=== PATIENT | female | born 1940 | race Caucasian/White ===

== ENCOUNTER 2017-01-15 11:42 | Emergency (ER) | payer OTHER, MEDICARE ==
[2017-01-15 11:58] VITALS: BMI 29.2
[2017-01-15] MEDS ORDERED: SODIUM CHLORIDE 1,000 ML IV STA (12:13)
--- NOTE | 2017-01-15 12:14 | PDOC ---
History of Present Illness - General Chief Complaint: Pain, Acute Stated Complaint: RT SIDE ABD PAIN History Source: Patient Exam Limitations: No Limitations - History of Present Illness Initial Comments: 01/15/17 13:07 HPI: This 76 year old female presents with her c/o generalized right sided abd and back pain that is "internal" and nothing noted specific with it coming and going. She has pain and states it was more intense when it started 2 /5 hours ago. She did not take anything and went to ER for evaluation. She denies fever, had some nausea but no vomiting. Her stated that she became a little sweaty and pale as well but it all subsided. She had a left sided kidney pain/stone one year ago and feels this is the same type plan. Denies dysuria, hematuria, CV tenderness. States she does have some urinary frequency. It does not burn. Chief Compliant: Right-sided abdominal and back pain Pain location: Duration: Started 2-1/2 hours ago Modifying factors: None Quality: Initially was sharp but now has subsided Radiating: It is internal only Severity: Moderate Time: of sided PMH: Breast cancer, kidney stone one year ago FH: Pt has not recently traveled outside the country in the last 30 days. Pt has not been in contact with people who have traveled out of the country, in contact with people who have been ill with fever, n, v, d. SH: smoking use: NONE illicit drug use: NONE alcohol use: NONE employment/educational status: sexual history: PSH: Lumpectomy, chemotherapy and radiation completed in April 2016 Home med use noted on JAN Allergies: NKA Immunizations: PCP: Dr. Flores Past History - Past Medical History Allergies/Adverse Reactions: Allergies Allergy/AdvReac Type Severity Reaction Status Date / Time No Known Allergies Allergy Verified 01/15/17 11:58 Home Medications: Ambulatory Orders NK [No Known Home Medication] 01/15/17 Anemia: Yes Asthma: No Cancer: Yes (SKIN, breast CA) Cardiac Disorders: No CVA: No COPD: No CHF: No Dementia: No Diabetes: No GI Disorders: Yes (gastritis) Disorders: No HTN: No Hypercholesterolemia: No Liver Disease: No Seizures: No Thyroid Disease: No - Surgical History Abdominal Surgery: No Appendectomy: No Cardiac Surgery: No Cholecystectomy: No Lung Surgery: No Neurologic Surgery: No Orthopedic Surgery: No - Immunization History Immunization Up to Date: Yes - Psycho/Social/Smoking Cessation Hx Suicidal Ideation: No Smoking History: Never smoked Have you smoked in the past 12 months: No Information on smoking cessation initiated: No Hx Alcohol Use: No Drug/Substance Use Hx: No Substance Use Type: None Review of Systems - Review of Systems Able to Perform ROS?: Yes Comments:: 01/15/17 13:18 General statement: Hematology: neg history of bleeding/blood thinners Skin: Neg for lesions, rash, bruising. HEENT: Neg symptoms Respiratory: Neg SOB or difficulty in breathing Cardiac: Neg chest pain GI: Neg pain, n/v : Neg problems on voiding MS: Neg for joint pain/stiffness, no edema Neuro: Neg for LOC, weakness, Endocrine: Neg for excess thirst/hunger, cold/heat intolerance, excess sweating Allergies: Neg for allergies 01/15/17 14:30 *Physical Exam - Vital Signs Last Vital Signs Temp Pulse Resp BP Pulse Ox 97.9 F 72 18 125/57 97 01/15/17 11:54 01/15/17 11:54 01/15/17 11:54 01/15/17 11:54 01/15/17 11:54 - Physical Exam Comments: 01/15/17 14:30 General Appearance: This well appearing 76-year-old female V/S: hemodynamically stable, afebrile Skin: WNL of pt's skin color, no signs of pallor, mottling, cyanosis Head:symmetrical Eyes: EOM's intact, PERRLA Ears: denies pain Nose: patent Throat: lips, teeth, gums, tongue, buccal mucos pink and moist Lungs: Chest symmetry equal. Cap refill <3 seconds. Lung sounds clear Cardiac: PMI at R 4MCL space, pos S1 and S2, regular rate. Abdomen: Soft, round, nontender but states there is pain with in herself that cannot really be reproduced : Not observed Muscularskeletal: Gait steady, ambulated in to ER, no edema +PMS Neuro: AAOx3, cognitively intact, speech clear and appropriate. ED Treatment Course - LABORATORY CBC & Chemistry Diagram: 01/15/17 13:27 01/15/17 13:27 Medical Decision Making - Medical Decision Making 01/15/17 14:32 A/P: 76-year-old female presents with right-sided abdominal pain that has now subsided upon arrival into the emergency room. Rule out kidney stone, UTI, abdominal strain, diverticulitis 1. Spiral CT 2. UA and C&S. 3. CBC and comp 4. Patient did not want any pain medication. Unable to access IV but patient is drinking fluids. 01/15/17 14:35 Labs are within normal limits. UA is negative except for some blood. Patient is noted to have a 2 mm right UVJ calculus with minimal hydronephrosis on the right side. Placed a phone call out to Dr. Quevedo. Patient has been under the care of Dr. Chase 1 in the past for her kidney stone. 01/15/17 15:[address] Quevedo re: pt results. Asked to follow up with Dr. Chase and drink plenty of fluids. *DC/Admit/Observation/Transfer Diagnosis at time of Disposition: Renal colic on right side - Discharge Dispostion Disposition: HOME Condition at time of disposition: Good Admit: No - Referrals Referrals: Byron Flores MD [Primary Care Provider] - - Patient Instructions Printed Discharge Instructions: DI for Kidney Stones Additional Instructions: Discharge instructions 1. Please follow up with your primary physician within the next few days and explain that you have been seen here in the Emergency Room and found to have a right side small kidney stone. It is not completely obstructive however it can move. If pain redevelops, you should return to ER. Drink plenty of water!!!. 2. If you experience any worsening of symptoms, increase pain please return to the ER 3. walk around and continue to do daily living activities. 4. Drink plenty of water Follow up with your urologist
[2017-01-15 13:53] LABS: BASOPHIL 0.9 % (0-2.0); EOSINOPHIL 1.1 % (0-4.5); MCH 30.7 pg (25.7-33.7); MCHC 33.1 g/dl (32.0-36.0); MEAN PLT VOLUME 7.4 fl (7.5-11.1); NEUTROPHILS 81.5 % (42.8-82.8); PLATELET COUNT 200 K/MM3 (134-434); RDW 13.3 % (11.6-15.6)
[2017-01-15 14:02] LABS: ALK PHOS 121 U/L (45-117); ANION GAP 11 (8-16); BILIRUBIN,TOTAL 0.4 mg/dL (0.2-1.0); CALCIUM 9.6 mg/dL (8.5-10.1); CO2 28 mmol/L (21-32); CREATININE 0.6 mg/dL (0.55-1.02); GLUCOSE,RANDOM 105 mg/dL (74-106); SGOT/AST 17 U/L (15-37); SGPT/ALT 27 U/L (12-78); TOT PROT 7.2 g/dl (6.4-8.2)
[2017-01-15 14:11] LABS: URINE APPEARANCE CLEAR; URINE BILIRUBIN NEGATIVE (NEGATIVE); URINE COLOR YELLOW; URINE GLUCOSE (UA) NEGATIVE (NEGATIVE); URINE KETONE NEGATIVE (NEGATIVE); URINE LEUK ESTERASE NEGATIVE (NEGATIVE); URINE NITRITE NEGATIVE (NEGATIVE); URINE PROTEIN NEGATIVE (NEGATIVE); URINE UROBILINOGEN NEGATIVE E.U./dl (0.2-1.0)
[2017-01-15 14:23] LABS: URINE BLOOD 2+ (NEGATIVE)
[2017-01-15 15:09] LABS: CALCIUM OXALATE CRYSTALS FEW /hpf (NONE SEEN); URINE MUCUS RARE; URINE RBC 41 /hpf (0-3); URINE WBC 1 /hpf (3-5)
[2017-01-15 15:54] VITALS: BP 128/60; PULSE 80; TEMP 98.6
== END 2017-01-15 15:40 | disposition home or self-care (01) ==
LOC: JER 11:42
DX: N23 Unspecified renal colic (principal); Z85.3 Personal history of malignant neoplasm of breast; Z85.828 Personal history of other malignant neoplasm of skin; D64.9 Anemia, unspecified
CPT/HCPCS: 36415; 74176; 80053; 81003; 81015; 85025; 87086; 99282-25